=== PATIENT | female | born 1980 | race Caucasian/White ===

== ENCOUNTER 2023-03-21 00:16 | Emergency (ER) | payer BC ==
[~2023-03-21] VITALS: Ht 157.5 cm; Wt 99.8 kg
[2023-03-21 00:20] VITALS: BP_SYST 121; PULSE 85; RESP 19; TEMP 97.5; O2SAT 98
[2023-03-21 00:50] LABS: BILIRUBIN,URINE NEGATIVE (NEGATIVE); BLOOD, URINE NEGATIVE (NEGATIVE); CLARITY/URINE CLEAR (CLEAR); COLOR,URINE YELLOW (YELLOW); GLUCOSE,URINE NEGATIVE (NEGATIVE); KETONES,URINE NEGATIVE (NEGATIVE); LEUKOCYTE ESTERASE ,URINE NEGATIVE (NEGATIVE); NITRITE, URINE NEGATIVE (NEGATIVE); PROTEIN URINE NEGATIVE (NEGATIVE); UROBILINOGEN,URINE 0.2 (0.2-1.0)
[2023-03-21] MEDS ORDERED: KETOROLAC TROMETHAMINE 15 MG VIAL IM ONE (01:15)
[2023-03-21 01:21] LABS: BASOPHILS # (AUTO) 0.1 K/uL (0.0-0.2); BASOPHILS % (AUTO) 0.8 % (0.0-2.0); EOSINOPHILS # (AUTO) 0.4 K/uL (0.0-0.4); EOSINOPHILS % (AUTO) 3.1 % (0.0-4.0); HEMATOCRIT 34.7 % (36-48); HEMOGLOBIN 11.7 g/dL (12.0-16.0); LYMPHOCYTES # (AUTO) 3.1 K/uL (1.0-5.5); LYMPHOCYTES % (AUTO) 26.9 % (20.5-51.5); MEAN CORPUSCULAR HEMOGLOBIN 29 pg (27-31); MEAN CORPUSCULAR HGB CONC 34 % (32-36); MEAN CORPUSCULAR VOLUME 88 fL (79.0-98.0); MONOCYTES # (AUTO) 0.8 K/uL (0.0-1.0); MONOCYTES % (AUTO) 7.3 % (1.7-9.3); NEUTROPHILS # (AUTO) 7.2 K/uL (1.8-7.7); NEUTROPHILS % (AUTO) 61.9 % (40.0-70.0); PLATELET COUNT (AUTO) 267 K/uL (130-430); RED BLOOD CELL COUNT(AUTO) 3.97 MIL/uL (4.2-6.2); RED CELL DISTRIBUTION WIDTH 13.1 % (9.0-15.0); WHITE BLOOD COUNT (AUTO) 11.6 K/uL (4.8-10.8)
[2023-03-21 01:35] LABS: SERUM HCG (QUALITATIVE) NEGATIVE (NEGATIVE)
[2023-03-21] MEDS ORDERED: LIDOCAINE PATCH 5% 1 EA TP ONE (01:41)
[2023-03-21 01:43] LABS: ALANINE AMINOTRANSFERASE 31 U/L (12-78); ALBUMIN 3.4 g/dL (3.4-4.8); ANION GAP 7 (5-15); ASPARTATE AMINOTRANSFERASE 17 U/L (10-37); BILIRUBIN,DIRECT 0.1 mg/dL (0.0-0.3); CALCIUM 8.5 mg/dL (8.4-11.0); CARBON DIOXIDE 28 mmol/L (23-29); CHLORIDE 103 mmol/L (98-107); CREATININE 0.62 mg/dL (0.55-1.30); GFR AFRICAN AMERICAN 135 mL/min (>90); GFR NON AFRICAN-AMERICAN 112 mL/min (>90); GLUCOSE 105 mg/dL (74-106); LIPASE 34 U/L (16-77); POTASSIUM 4.2 mmol/L (3.5-5.1); SODIUM SERUM 138 mmol/L (136-145); TOTAL BILIRUBIN 0.3 mg/dL (0.0-1.0); UREA NITROGEN, BLOOD 14 mg/dL (8-21)
[2023-03-21] MEDS ORDERED: METH-634 PO (02:20)
[2023-03-21] MEDS ORDERED: LIDO1ADH77 TD (02:20)
[2023-03-21] MEDS ORDERED: IBUP-1969 PO (02:20)
[2023-03-21 02:49] VITALS: BP_SYST 118; PULSE 72; RESP 18; TEMP 97.5; O2SAT 100
== END 2023-03-21 02:49 | disposition home or self-care (01) ==
LOC: SED 00:16
DX: R10.9 Unspecified abdominal pain (principal); Z79.899 Other long term (current) drug therapy
CPT/HCPCS: 99284; 71045; 80076; 80048; 81001; 84703; 83690; 85025; 84484; 36415; 81003; J1885

== ENCOUNTER 2023-07-16 10:51 | Inpatient (IN) | payer OTHER, MEDICAID ==
[~2023-07-16] VITALS: Ht 160 cm; Wt 119.3 kg
[~2023-07-16 10:51] MED LIST: IBUP-1969 PO; LIDO1ADH77 TD; METH-634 PO
[2023-07-16 11:02] VITALS: BP_SYST 94; PULSE 95; RESP 18; TEMP 97.4; O2SAT 97
[2023-07-16 11:38] LABS: BILIRUBIN,URINE NEGATIVE (NEGATIVE); BLOOD, URINE NEGATIVE (NEGATIVE); COLOR,URINE YELLOW (YELLOW); GLUCOSE,URINE NEGATIVE (NEGATIVE); KETONES,URINE NEGATIVE (NEGATIVE); LEUKOCYTE ESTERASE ,URINE NEGATIVE (NEGATIVE); NITRITE, URINE NEGATIVE (NEGATIVE); PROTEIN URINE NEGATIVE (NEGATIVE); UROBILINOGEN,URINE 0.2 (0.2-1.0)
[2023-07-16 11:39] LABS: CLARITY/URINE SLIGHTLY HAZY (CLEAR)
[2023-07-16] MEDS: KETOROLAC TROMETHAMINE 30 MG VIAL IM ONE (11:42)
[2023-07-16 11:43] LABS: BASOPHILS # (AUTO) 0.1 K/uL (0.0-0.2); BASOPHILS % (AUTO) 0.5 % (0.0-2.0); EOSINOPHILS # (AUTO) 0.2 K/uL (0.0-0.4); HEMATOCRIT 37.9 % (36-48); HEMOGLOBIN 13.1 g/dL (12.0-16.0); LYMPHOCYTES # (AUTO) 2.2 K/uL (1.0-5.5); LYMPHOCYTES % (AUTO) 23.5 % (20.5-51.5); MEAN CORPUSCULAR HEMOGLOBIN 30 pg (27-31); MEAN CORPUSCULAR HGB CONC 35 % (32-36); MEAN CORPUSCULAR VOLUME 87 fL (79.0-98.0); MONOCYTES # (AUTO) 0.6 K/uL (0.0-1.0); MONOCYTES % (AUTO) 6.1 % (1.7-9.3); NEUTROPHILS # (AUTO) 6.5 K/uL (1.8-7.7); NEUTROPHILS % (AUTO) 67.9 % (40.0-70.0); PLATELET COUNT (AUTO) 284 K/uL (130-430); RED BLOOD CELL COUNT(AUTO) 4.33 MIL/uL (4.2-6.2); RED CELL DISTRIBUTION WIDTH 14.5 % (9.0-15.0); WHITE BLOOD COUNT (AUTO) 9.5 K/uL (4.8-10.8)
[2023-07-16 12:05] LABS: ALBUMIN 3.7 g/dL (3.4-4.8); BILIRUBIN,DIRECT 0.1 mg/dL (0.0-0.3); CALCIUM 9.4 mg/dL (8.4-11.0); CREATININE 0.96 mg/dL (0.55-1.30); POTASSIUM 3.7 mmol/L (3.5-5.1); TOTAL BILIRUBIN 0.4 mg/dL (0.0-1.0); TOTAL PROTEIN, SERUM 7.9 g/dL (6.4-8.3)
[2023-07-16] MEDS: fentaNYL CITRATE/PF 100 MCG/2 ML AMP IVP ONE ×2 (12:31→15:20)
[2023-07-16] MEDS ORDERED: PIPERACILLIN/TAZOBACTAM 3.375 GM/VIAL (ZOSYN) IV ONE ×2 (13:45)
[2023-07-16] MEDS: PIPERACILLIN/TAZO 3.375 GM in NS 50 ML IV ONE (14:03)
[2023-07-16] MEDS ORDERED: POTASSIUM CHLORIDE 20 MEQ TABLET.ER PO PRN (16:15)
[2023-07-16] MEDS ORDERED: MUPIROCIN 2% TOPICAL OINTMENT 22 GM NS PRN (16:15)
[2023-07-16] MEDS ORDERED: LORazepam 2 MG/ML VIAL IVP PRN (16:15)
[2023-07-16] MEDS ORDERED: MAGNESIUM SULFATE 50 ML IV PRN (16:15)
[2023-07-16] MEDS ORDERED: DOCUSATE SODIUM 100 MG CAPSULE PO PRN (16:15)
[2023-07-16] MEDS: D5NS 1,000 ML IV SCH (16:59)
[2023-07-16] MEDS ORDERED: fentaNYL CITRATE/PF 100 MCG/2 ML AMP ONE (17:50)
[2023-07-16] MEDS ORDERED: ceFAZolin SODIUM 1 GM VIAL ONE (17:50)
[2023-07-16] MEDS ORDERED: KETOROLAC TROMETHAMINE 30 MG VIAL IVP PRN (18:30)
[2023-07-16] MEDS: MORPHINE 4 MG INJ. 4 MG/ML VIAL IVP PRN (20:06)
[2023-07-16] MEDS: PIPERACILLIN/TAZO 3.375 GM in D5W 50 ML IV SCH (22:03)
[2023-07-16] MEDS ORDERED: RISP3TAB77 PO (23:21)
[2023-07-16] MEDS ORDERED: BUPR300T46 PO (23:21)
[2023-07-17] MEDS: ONDANSETRON HCL 4 MG/2 ML VIAL IVP PRN (00:04)
[2023-07-17 04:50] LABS: BASOPHILS % (AUTO) 0.6 % (0.0-2.0); EOSINOPHILS # (AUTO) 0.4 K/uL (0.0-0.4); EOSINOPHILS % (AUTO) 4.4 % (0.0-4.0); HEMOGLOBIN 11.9 g/dL (12.0-16.0); LYMPHOCYTES # (AUTO) 2.3 K/uL (1.0-5.5); LYMPHOCYTES % (AUTO) 28.6 % (20.5-51.5); MEAN CORPUSCULAR HEMOGLOBIN 30 pg (27-31); MEAN CORPUSCULAR HGB CONC 34 % (32-36); MEAN CORPUSCULAR VOLUME 88 fL (79.0-98.0); MONOCYTES # (AUTO) 0.6 K/uL (0.0-1.0); MONOCYTES % (AUTO) 7.3 % (1.7-9.3); NEUTROPHILS # (AUTO) 4.7 K/uL (1.8-7.7); NEUTROPHILS % (AUTO) 59.1 % (40.0-70.0); PLATELET COUNT (AUTO) 253 K/uL (130-430); RED BLOOD CELL COUNT(AUTO) 3.97 MIL/uL (4.2-6.2); RED CELL DISTRIBUTION WIDTH 14.3 % (9.0-15.0)
[2023-07-17 05:13] LABS: CALCIUM 7.5 mg/dL (8.4-11.0); CREATININE 0.89 mg/dL (0.55-1.30); POTASSIUM 3.8 mmol/L (3.5-5.1)
[2023-07-17] MEDS ORDERED: MORPHINE 4 MG INJ. 4 MG/ML VIAL ONE (05:57)
[2023-07-17] MEDS: ACETAMINOPHEN 500 MG TABLET PO PRN (08:10)
[2023-07-17] MEDS: ACETAMINOPHEN I.V. 1000 MG 100 ML IV ONE (09:05)
[2023-07-17] MEDS ORDERED: ACETAMINOPHEN I.V. 1000 MG 100 ML IV PRN (17:30)
[2023-07-17] MEDS ORDERED: HYDROcodone/ACETAMIN 5-325 MG TAB (NORCO/ VICODIN) PO PRN (18:15)
[2023-07-17] MEDS ORDERED: KETOROLAC TROMETHAMINE 15 MG VIAL IVP PRN (18:15)
[2023-07-17] MEDS ORDERED: NALOXONE HCL 0.4 MG/ML AMP (NARCAN) IVP PRN (18:15)
[2023-07-17] MEDS ORDERED: ONDANSETRON HCL 4 MG/2 ML VIAL IVP PRN ×2 (18:15→18:45)
[2023-07-17] MEDS ORDERED: HYDROmorphone 2 MG/ML VIAL IVP PRN (18:45)
[2023-07-17] MEDS ORDERED: LR 1,000 ML IV SCH (18:45)
[2023-07-17 18:55] VITALS: BP_SYST 132; PULSE 90; O2SAT 98
[2023-07-17] MEDS: HYDROmorphone 2 MG/ML VIAL ONE (19:15)
[2023-07-17] MEDS: HYDROmorphone 1 MG/ML INJ. CARTRIDGE ONE ×2 (19:25→19:44)
[2023-07-17] MEDS: HYDROmorphone 1 MG/ML INJ. CARTRIDGE IVP PRN (19:52)
[2023-07-18 01:47] VITALS: BP_SYST 126; PULSE 80; RESP 18; TEMP 98
[2023-07-18 02:07] VITALS: O2SAT 97
[2023-07-18] MEDS: NACL 0.9% 1,000 ML IV SCH (04:15)
[2023-07-18 06:27] LABS: BASOPHILS % (AUTO) 0.3 % (0.0-2.0); EOSINOPHILS # (AUTO) 0.1 K/uL (0.0-0.4); EOSINOPHILS % (AUTO) 0.5 % (0.0-4.0); HEMATOCRIT 38.2 % (36-48); HEMOGLOBIN 12.7 g/dL (12.0-16.0); LYMPHOCYTES # (AUTO) 0.9 K/uL (1.0-5.5); LYMPHOCYTES % (AUTO) 7.6 % (20.5-51.5); MEAN CORPUSCULAR HEMOGLOBIN 29 pg (27-31); MEAN CORPUSCULAR HGB CONC 33 % (32-36); MEAN CORPUSCULAR VOLUME 88 fL (79.0-98.0); MONOCYTES # (AUTO) 0.5 K/uL (0.0-1.0); NEUTROPHILS # (AUTO) 10.7 K/uL (1.8-7.7); NEUTROPHILS % (AUTO) 87.6 % (40.0-70.0); PLATELET COUNT (AUTO) 292 K/uL (130-430); RED BLOOD CELL COUNT(AUTO) 4.31 MIL/uL (4.2-6.2); RED CELL DISTRIBUTION WIDTH 14.2 % (9.0-15.0); WHITE BLOOD COUNT (AUTO) 12.2 K/uL (4.8-10.8)
[2023-07-18 06:33] LABS: ALBUMIN 3.2 g/dL (3.4-4.8); CALCIUM 8.6 mg/dL (8.4-11.0); CREATININE 0.9 mg/dL (0.55-1.30); POTASSIUM 3.7 mmol/L (3.5-5.1); TOTAL BILIRUBIN 0.5 mg/dL (0.0-1.0); TOTAL PROTEIN, SERUM 7.4 g/dL (6.4-8.3)
[2023-07-18 08:05] VITALS: BP_SYST 104; PULSE 79; RESP 15; TEMP 97.9; O2SAT 95
[2023-07-18] MEDS: KETOROLAC TROMETHAMINE 15 MG VIAL IVP PRN (08:22)
[2023-07-18] MEDS: HYDROmorphone 1 MG/ML INJ. CARTRIDGE IVP PRN (08:30)
[2023-07-18 12:00] VITALS: BP_SYST 103; PULSE 86; RESP 16; TEMP 98.3; O2SAT 95
[2023-07-18 15:39] VITALS: BP_SYST 112; PULSE 88; RESP 14; TEMP 98.8; O2SAT 95
[2023-07-18] MEDS: ACETAMINOPHEN 500 MG TABLET PO PRN (17:47)
[2023-07-18 20:00] VITALS: BP_SYST 110; PULSE 86; RESP 16; TEMP 97.6; O2SAT 95
[2023-07-18] MEDS: ZOLPIDEM TARTRATE 5 MG TABLET PO PRN (23:34)
[2023-07-19] VITALS: BP_SYST 113; PULSE 84; RESP 16; TEMP 97.8; O2SAT 96
[2023-07-19 06:59] LABS: BASOPHILS % (AUTO) 0.1 % (0.0-2.0); EOSINOPHILS # (AUTO) 0.7 K/uL (0.0-0.4); EOSINOPHILS % (AUTO) 7.7 % (0.0-4.0); HEMATOCRIT 34.4 % (36-48); HEMOGLOBIN 11.8 g/dL (12.0-16.0); LYMPHOCYTES # (AUTO) 1.7 K/uL (1.0-5.5); LYMPHOCYTES % (AUTO) 18.8 % (20.5-51.5); MEAN CORPUSCULAR HEMOGLOBIN 30 pg (27-31); MEAN CORPUSCULAR HGB CONC 34 % (32-36); MEAN CORPUSCULAR VOLUME 88 fL (79.0-98.0); MONOCYTES # (AUTO) 0.9 K/uL (0.0-1.0); MONOCYTES % (AUTO) 9.4 % (1.7-9.3); NEUTROPHILS # (AUTO) 5.8 K/uL (1.8-7.7); PLATELET COUNT (AUTO) 255 K/uL (130-430); RED BLOOD CELL COUNT(AUTO) 3.93 MIL/uL (4.2-6.2); RED CELL DISTRIBUTION WIDTH 14.1 % (9.0-15.0); WHITE BLOOD COUNT (AUTO) 9.1 K/uL (4.8-10.8)
[2023-07-19 07:04] LABS: CALCIUM 8.6 mg/dL (8.4-11.0); CREATININE 0.73 mg/dL (0.55-1.30); POTASSIUM 3.6 mmol/L (3.5-5.1)
[2023-07-19 08:44] VITALS: BP_SYST 154; PULSE 78; RESP 16; TEMP 97.8; O2SAT 96
[2023-07-19] MEDS ORDERED: AMOX-423 PO (11:04)
[2023-07-19] MEDS ORDERED: ACET-73 PO (11:07)
[2023-07-19] MEDS ORDERED: CYCL10TA24 PO (11:07)
[2023-07-19 11:42] VITALS: BP_SYST 122; PULSE 88; RESP 16; TEMP 97.8; O2SAT 95
[2023-07-19] MEDS: HYDROcodone/ACETAMIN 10-325 MG TAB PO PRN (12:03)
[2023-07-19] MEDS: CYCLOBENZAPRINE HCL 10 MG TABLET (FLEXERIL) PO ONE (12:03)
[2023-07-19 13:33] VITALS: BP_SYST 122; PULSE 77; RESP 16; TEMP 97.8; O2SAT 95
== END 2023-07-19 14:20 | disposition home or self-care (01) | DRG 398 ==
LOC: SED 10:51 → SMU 16:06
PROVIDERS: ADMIT General Practice; ATTEND General Practice
PROC: 3E1M48Z Irrigation of Peritoneal Cavity using Irrigating Substance, Percutaneous Endoscopic Approach (ICD-10-PCS; 2023-07-17)
PROC: 0DTJ4ZZ Resection of Appendix, Percutaneous Endoscopic Approach (ICD-10-PCS; principal; 2023-07-17 17:50)
DX: K35.80 Unspecified acute appendicitis (principal); Z68.42 Body mass index [BMI] 45.0-49.9, adult; E83.51 Hypocalcemia; E66.9 Obesity, unspecified; Z90.711 Acquired absence of uterus with remaining cervical stump; Z88.8 Allergy status to other drugs, medicaments and biological substances; Z79.899 Other long term (current) drug therapy
CPT/HCPCS: 36415; 80048; 80053; 80076; 81001; 81003; 83037; 83605; 83690; 83735; 85025; 87040; 87070; 87075; 88304; 94010; 94070; 94760; 99285; C1727; J0131; J0330; J0690; J1170; J1885; J2001; J2270; J2405; J2543; J2704; J2765; J3010; J3465; J3490; J7030; J7060; J7120

== ENCOUNTER 2023-07-25 12:01 | Inpatient (IN) | payer OTHER, MEDICAID ==
[~2023-07-25] VITALS: Ht 157.5 cm; Wt 113.4 kg
[~2023-07-25 12:01] MED LIST changes: +ACET-73 PO; +AMOX-423 PO; +BUPR300T46 PO; +CYCL10TA24 PO; +RISP3TAB77 PO
[2023-07-25 12:15] VITALS: BP_SYST 118; PULSE 93; RESP 18; TEMP 97.3; O2SAT 95
[2023-07-25 12:49] LABS: BASOPHILS % (AUTO) 0.1 % (0.0-2.0); EOSINOPHILS # (AUTO) 0.3 K/uL (0.0-0.4); EOSINOPHILS % (AUTO) 1.2 % (0.0-4.0); HEMATOCRIT 37.3 % (36-48); HEMOGLOBIN 12.7 g/dL (12.0-16.0); LYMPHOCYTES # (AUTO) 1.5 K/uL (1.0-5.5); LYMPHOCYTES % (AUTO) 6.4 % (20.5-51.5); MEAN CORPUSCULAR HEMOGLOBIN 30 pg (27-31); MEAN CORPUSCULAR HGB CONC 34 % (32-36); MEAN CORPUSCULAR VOLUME 88 fL (79.0-98.0); MONOCYTES # (AUTO) 1.7 K/uL (0.0-1.0); MONOCYTES % (AUTO) 7.3 % (1.7-9.3); NEUTROPHILS # (AUTO) 19.4 K/uL (1.8-7.7); PLATELET COUNT (AUTO) 335 K/uL (130-430); RED BLOOD CELL COUNT(AUTO) 4.24 MIL/uL (4.2-6.2)
[2023-07-25 12:54] LABS: WHITE BLOOD COUNT (AUTO) 22.8 K/uL (4.8-10.8)
[2023-07-25 12:58] LABS: CALCIUM 8.9 mg/dL (8.4-11.0); CREATININE 0.93 mg/dL (0.55-1.30); POTASSIUM 4.1 mmol/L (3.5-5.1)
[2023-07-25] MEDS: KETOROLAC TROMETHAMINE 30 MG VIAL IM ONE (13:02)
[2023-07-25] MEDS: MORPHINE 2 MG/ML INJ. SYRINGE IM ONE (13:14)
[2023-07-25 13:39] LABS: BILIRUBIN,URINE NEGATIVE (NEGATIVE); BLOOD, URINE NEGATIVE (NEGATIVE); CLARITY/URINE CLEAR (CLEAR); COLOR,URINE YELLOW (YELLOW); GLUCOSE,URINE NEGATIVE (NEGATIVE); KETONES,URINE NEGATIVE (NEGATIVE); LEUKOCYTE ESTERASE ,URINE NEGATIVE (NEGATIVE); NITRITE, URINE NEGATIVE (NEGATIVE); PH,URINE 6.5 (5.0-8.0); PROTEIN URINE NEGATIVE (NEGATIVE); UROBILINOGEN,URINE 0.2 (0.2-1.0)
[2023-07-25] MEDS ORDERED: PIPERACILLIN/TAZOBACTAM 4.5 GM/VIAL (ZOSYN) IV ONE (14:10)
[2023-07-25] MEDS: PIPERACILLIN/TAZO 4.5 GM in NS 100 ML IV ONE (14:19)
[2023-07-25] MEDS ORDERED: NALOXONE HCL 0.4 MG/ML AMP (NARCAN) IVP PRN ×2 (15:00)
[2023-07-25] MEDS ORDERED: ACETAMINOPHEN 325 MG TABLET PO PRN ×3 (15:00→16:00)
[2023-07-25] MEDS: HYDROcodone/ACETAMIN 10-325 MG TAB PO PRN (15:04)
[2023-07-25] MEDS: metroNIDAZOLE 500 mg/NS 100 ML IV ONE (15:08)
[2023-07-25] MEDS: D5/0.45 NS 1,000 ML IV SCH (15:19)
[2023-07-25] MEDS ORDERED: LORazepam 2 MG/ML VIAL IVP PRN (15:45)
[2023-07-25] MEDS ORDERED: NON-FORMULARY MEDICATION (Lidocaine 1 PATCH) TD PRN (15:45)
[2023-07-25] MEDS ORDERED: ONDANSETRON HCL 4 MG/2 ML VIAL IVP PRN (15:45)
[2023-07-25] MEDS: CYCLOBENZAPRINE HCL 10 MG TABLET (FLEXERIL) PO SCH (22:31)
[2023-07-25] MEDS: risperiDONE 1 MG TABLET (RisperDAL) PO SCH (22:32)
[2023-07-25] MEDS: metroNIDAZOLE 500 mg/NS 100 ML IV SCH (22:33)
[2023-07-25] MEDS: CIPROFLOXACIN LACT 400 MG/D5W 200 ML IV SCH (22:34)
[2023-07-25 22:50] VITALS: BP_SYST 125; PULSE 79; RESP 20; TEMP 98.5
[2023-07-26] VITALS (7 sets, daily range): BP systolic 107–129; PULSE 75–89; RESP 18–20; TEMP 97.4–98.3; O2SAT 94–99
[2023-07-26 07:24] LABS: CALCIUM 8.5 mg/dL (8.4-11.0); CREATININE 0.77 mg/dL (0.55-1.30); POTASSIUM 4.1 mmol/L (3.5-5.1)
[2023-07-26 07:31] LABS: BASOPHILS # (AUTO) 0.1 K/uL (0.0-0.2); BASOPHILS % (AUTO) 0.4 % (0.0-2.0); EOSINOPHILS # (AUTO) 0.7 K/uL (0.0-0.4); EOSINOPHILS % (AUTO) 3.7 % (0.0-4.0); HEMATOCRIT 35.1 % (36-48); HEMOGLOBIN 11.9 g/dL (12.0-16.0); LYMPHOCYTES # (AUTO) 1.9 K/uL (1.0-5.5); LYMPHOCYTES % (AUTO) 10.8 % (20.5-51.5); MEAN CORPUSCULAR HEMOGLOBIN 30 pg (27-31); MEAN CORPUSCULAR HGB CONC 34 % (32-36); MEAN CORPUSCULAR VOLUME 89 fL (79.0-98.0); MONOCYTES % (AUTO) 5.6 % (1.7-9.3); NEUTROPHILS # (AUTO) 14.2 K/uL (1.8-7.7); NEUTROPHILS % (AUTO) 79.5 % (40.0-70.0); PLATELET COUNT (AUTO) 318 K/uL (130-430); RED BLOOD CELL COUNT(AUTO) 3.96 MIL/uL (4.2-6.2); RED CELL DISTRIBUTION WIDTH 14.2 % (9.0-15.0); WHITE BLOOD COUNT (AUTO) 17.9 K/uL (4.8-10.8)
[2023-07-26] MEDS: buPROPion HCL 150 MG TABLET.SA PO SCH (08:42)
[2023-07-26] MEDS ORDERED: NALOXONE HCL 0.4 MG/ML AMP (NARCAN) IVP PRN (08:45)
[2023-07-26] MEDS: MILK OF MAGNESIA 30 ML UDC PO ONE (08:46)
[2023-07-26] MEDS: MORPHINE 2 MG/ML INJ. SYRINGE IVP PRN (09:55)
[2023-07-26] MEDS: NORMAL SALINE 5 ML DISP.SYRIN IVF SCH (14:10)
[2023-07-26] MEDS: VANCOMYCIN HCL ORAL SOLUTION 125 MG/5 ML, 150 ML PO SCH (14:42)
[2023-07-26] MEDS: LACTOBACILLUS RHAMNOSUS GG 1 CAP CAPSULE PO SCH (20:16)
[2023-07-27] VITALS: BP_SYST 106; PULSE 82; RESP 18; TEMP 97.8; O2SAT 96
[2023-07-27 05:52] LABS: BASOPHILS # (AUTO) 0.1 K/uL (0.0-0.2); BASOPHILS % (AUTO) 0.6 % (0.0-2.0); EOSINOPHILS # (AUTO) 0.9 K/uL (0.0-0.4); HEMATOCRIT 32.6 % (36-48); LYMPHOCYTES # (AUTO) 2.4 K/uL (1.0-5.5); LYMPHOCYTES % (AUTO) 18.3 % (20.5-51.5); MEAN CORPUSCULAR HEMOGLOBIN 30 pg (27-31); MEAN CORPUSCULAR HGB CONC 34 % (32-36); MEAN CORPUSCULAR VOLUME 88 fL (79.0-98.0); MONOCYTES % (AUTO) 7.7 % (1.7-9.3); NEUTROPHILS # (AUTO) 8.6 K/uL (1.8-7.7); NEUTROPHILS % (AUTO) 66.4 % (40.0-70.0); PLATELET COUNT (AUTO) 310 K/uL (130-430); RED BLOOD CELL COUNT(AUTO) 3.72 MIL/uL (4.2-6.2); RED CELL DISTRIBUTION WIDTH 14.3 % (9.0-15.0); WHITE BLOOD COUNT (AUTO) 12.9 K/uL (4.8-10.8)
[2023-07-27 06:05] LABS: ERYTHROCYTE SEDIMENTATION RATE 64 MM/HR (0-20)
[2023-07-27 06:20] LABS: ALANINE AMINOTRANSFERASE 28 U/L (12-78); ALBUMIN 2.7 g/dL (3.4-4.8); ANION GAP 7 (5-15); ASPARTATE AMINOTRANSFERASE < 5 U/L (10-37); CALCIUM 8.7 mg/dL (8.4-11.0); CARBON DIOXIDE 29 mmol/L (23-29); CHLORIDE 103 mmol/L (98-107); CREATININE 0.81 mg/dL (0.55-1.30); GFR AFRICAN AMERICAN 99 mL/min (>90); GLUCOSE 98 mg/dL (74-106); POTASSIUM 4.5 mmol/L (3.5-5.1); SODIUM SERUM 139 mmol/L (136-145); TOTAL BILIRUBIN 0.3 mg/dL (0.0-1.0); TOTAL PROTEIN, SERUM 6.9 g/dL (6.4-8.3); UREA NITROGEN, BLOOD 10 mg/dL (8-21)
[2023-07-27 08:00] VITALS: BP_SYST 110; PULSE 90; RESP 18; TEMP 97.9; O2SAT 100; O2SAT 99
[2023-07-27 08:12] LABS: GFR NON AFRICAN-AMERICAN 82 mL/min (>90)
[2023-07-27] MEDS: SIMETHICONE 80 MG TAB.CHEW PO SCH (10:13)
[2023-07-27 12:00] VITALS: BP_SYST 118; PULSE 86; RESP 20; TEMP 98.2; O2SAT 98
[2023-07-27] MEDS: HYDROcodone/ACETAMIN 5-325 MG TAB (NORCO/ VICODIN) PO PRN (14:42)
[2023-07-27 16:00] VITALS: BP_SYST 124; PULSE 88; RESP 18; TEMP 98.8; O2SAT 96
[2023-07-27 20:00] VITALS: BP_SYST 118; PULSE 87; RESP 18; TEMP 97; O2SAT 93
[2023-07-27 23:45] VITALS: O2SAT 93
[2023-07-28] VITALS: BP_SYST 101; PULSE 79; RESP 16; TEMP 97.1; O2SAT 96
[2023-07-28 05:06] LABS: BASOPHILS # (AUTO) 0.1 K/uL (0.0-0.2); BASOPHILS % (AUTO) 1.1 % (0.0-2.0); EOSINOPHILS # (AUTO) 0.9 K/uL (0.0-0.4); HEMATOCRIT 34.4 % (36-48); HEMOGLOBIN 11.6 g/dL (12.0-16.0); LYMPHOCYTES # (AUTO) 2.1 K/uL (1.0-5.5); LYMPHOCYTES % (AUTO) 18.4 % (20.5-51.5); MEAN CORPUSCULAR HEMOGLOBIN 30 pg (27-31); MEAN CORPUSCULAR HGB CONC 34 % (32-36); MEAN CORPUSCULAR VOLUME 88 fL (79.0-98.0); MONOCYTES # (AUTO) 0.9 K/uL (0.0-1.0); MONOCYTES % (AUTO) 8.3 % (1.7-9.3); NEUTROPHILS # (AUTO) 7.4 K/uL (1.8-7.7); NEUTROPHILS % (AUTO) 64.2 % (40.0-70.0); PLATELET COUNT (AUTO) 354 K/uL (130-430); RED BLOOD CELL COUNT(AUTO) 3.92 MIL/uL (4.2-6.2); WHITE BLOOD COUNT (AUTO) 11.5 K/uL (4.8-10.8)
[2023-07-28 05:11] LABS: ERYTHROCYTE SEDIMENTATION RATE 72 MM/HR (0-20)
[2023-07-28 05:27] LABS: CALCIUM 9.3 mg/dL (8.4-11.0); CREATININE 0.82 mg/dL (0.55-1.30); POTASSIUM 4.8 mmol/L (3.5-5.1)
[2023-07-28 08:36] VITALS: BP_SYST 104; PULSE 76; RESP 18; TEMP 97.6; O2SAT 95
[2023-07-28] MEDS ORDERED: METR-154 PO (09:13)
[2023-07-28] MEDS ORDERED: CIPR500T5 PO (09:13)
[2023-07-28] MEDS ORDERED: HYDR-3917 PO (09:13)
[2023-07-28] MEDS ORDERED: SIME80TA15 PO (09:13)
[2023-07-28] MEDS ORDERED: LACT1CAP57 PO (09:13)
[2023-07-28 12:01] VITALS: BP_SYST 104; PULSE 77; RESP 17; TEMP 98.1; O2SAT 99
[2023-07-28 12:22] VITALS: BP_SYST 114; PULSE 82; RESP 18; TEMP 97.8; O2SAT 97
[2023-08-16] MEDS ORDERED: METH-776 PO (23:17)
[2023-08-16] MEDS ORDERED: METH-634 PO (23:17)
== END 2023-07-28 12:35 | disposition home health service (06) | DRG 871 ==
LOC: SED 12:01 → SMU 14:02 → OBSVTOIN 14:02 → SMU 20:15
PROVIDERS: ADMIT Preventive Medicine Preventive Medicine/Occupational Environmental Medicine; ATTEND Preventive Medicine Preventive Medicine/Occupational Environmental Medicine
DX: A41.9 Sepsis, unspecified organism (principal); G93.41 Metabolic encephalopathy; Z68.42 Body mass index [BMI] 45.0-49.9, adult; A09 Infectious gastroenteritis and colitis, unspecified; E44.0 Moderate protein-calorie malnutrition; K76.0 Fatty (change of) liver, not elsewhere classified; D64.9 Anemia, unspecified; E88.09 Other disorders of plasma-protein metabolism, not elsewhere classified; E66.9 Obesity, unspecified; Z90.49 Acquired absence of other specified parts of digestive tract; Z90.710 Acquired absence of both cervix and uterus; Z79.899 Other long term (current) drug therapy
CPT/HCPCS: 36415; 80048; 80053; 81001; 81003; 83605; 85025; 85651; 87040; 87045-TC; 87046; 87081; 89055; 96365; 96368; 96372; 99285; J0744; J1885; J2270; J2543; J3490

== ENCOUNTER 2023-08-07 09:53 | Emergency (ER) | payer OTHER, MEDICAID ==
[~2023-08-07] VITALS: Ht 157.5 cm; Wt 113.4 kg
[~2023-08-07 09:53] MED LIST changes: -AMOX-423 PO; +CIPR500T5 PO; +HYDR-3917 PO; +LACT1CAP57 PO; +METR-154 PO; +SIME80TA15 PO
[2023-08-07] MEDS ORDERED: KETOROLAC TROMETHAMINE 60 MG/2 ML VIAL IM ONE (10:00)
[2023-08-07] MEDS ORDERED: HYDROcodone/ACETAMIN 10-325 MG TAB PO ONE (10:00)
[2023-08-07 10:01] VITALS: BP_SYST 123; PULSE 86; RESP 18; TEMP 98.3; O2SAT 98
[2023-08-07] MEDS ORDERED: NORMAL SALINE 5 ML DISP.SYRIN IVF SCH (10:15)
[2023-08-07 10:26] LABS: BASOPHILS # (AUTO) 0.1 K/uL (0.0-0.2); BASOPHILS % (AUTO) 0.7 % (0.0-2.0); EOSINOPHILS # (AUTO) 0.7 K/uL (0.0-0.4); EOSINOPHILS % (AUTO) 7.9 % (0.0-4.0); HEMOGLOBIN 12.2 g/dL (12.0-16.0); LYMPHOCYTES # (AUTO) 2.8 K/uL (1.0-5.5); LYMPHOCYTES % (AUTO) 29.7 % (20.5-51.5); MEAN CORPUSCULAR HEMOGLOBIN 30 pg (27-31); MEAN CORPUSCULAR HGB CONC 34 % (32-36); MEAN CORPUSCULAR VOLUME 88 fL (79.0-98.0); MONOCYTES # (AUTO) 0.5 K/uL (0.0-1.0); MONOCYTES % (AUTO) 5.6 % (1.7-9.3); NEUTROPHILS # (AUTO) 5.3 K/uL (1.8-7.7); NEUTROPHILS % (AUTO) 56.1 % (40.0-70.0); PLATELET COUNT (AUTO) 317 K/uL (130-430); RED BLOOD CELL COUNT(AUTO) 4.09 MIL/uL (4.2-6.2); RED CELL DISTRIBUTION WIDTH 14.1 % (9.0-15.0); WHITE BLOOD COUNT (AUTO) 9.5 K/uL (4.8-10.8)
[2023-08-07 10:42] LABS: INR 1.1 (0.8-1.2); PROTHROMBIN TIME 10.9 SECS (9.5-12.5)
[2023-08-07 10:44] LABS: ALBUMIN 2.9 g/dL (3.4-4.8); CALCIUM 8.5 mg/dL (8.4-11.0); CREATININE 0.76 mg/dL (0.55-1.30); POTASSIUM 3.6 mmol/L (3.5-5.1); TOTAL BILIRUBIN 0.2 mg/dL (0.0-1.0); TOTAL PROTEIN, SERUM 7.3 g/dL (6.4-8.3)
[2023-08-07 10:45] LABS: SERUM HCG (QUALITATIVE) NEGATIVE (NEGATIVE)
[2023-08-07 10:59] LABS: BILIRUBIN,URINE NEGATIVE (NEGATIVE); BLOOD, URINE NEGATIVE (NEGATIVE); COLOR,URINE YELLOW (YELLOW); GLUCOSE,URINE NEGATIVE (NEGATIVE); KETONES,URINE NEGATIVE (NEGATIVE); LEUKOCYTE ESTERASE ,URINE NEGATIVE (NEGATIVE); NITRITE, URINE NEGATIVE (NEGATIVE); PH,URINE 5.5 (5.0-8.0); PROTEIN URINE NEGATIVE (NEGATIVE); UROBILINOGEN,URINE 0.2 (0.2-1.0)
[2023-08-07 11:00] LABS: CLARITY/URINE HAZY (CLEAR)
[2023-08-07 11:09] LABS: BACTERIA,URINE MODERATE /HPF (None Seen); RBC,URINE 0-3 /HPF (0-3); WBC,URINE 0-3 /HPF (0-3)
[2023-08-07 11:21] LABS: BILIRUBIN,DIRECT 0.1 mg/dL (0.0-0.3)
[2023-08-07] MEDS ORDERED: IBUP-1969 PO (11:44)
[2023-08-07] MEDS ORDERED: SOM350 PO (11:44)
[2023-08-07 12:02] VITALS: BP_SYST 130; PULSE 86; RESP 18; TEMP 98.3; O2SAT 98
[2023-08-07] MEDS: MORPHINE 4 MG INJ. 4 MG/ML VIAL IM ONE (12:03)
== END 2023-08-07 12:02 | disposition home or self-care (01) ==
LOC: SED 09:53
DX: M54.50 Low back pain, unspecified (principal); Z88.5 Allergy status to narcotic agent; Z79.899 Other long term (current) drug therapy; Z79.2 Long term (current) use of antibiotics
CPT/HCPCS: 99284; 80076; 80048; 81001; 82150; 84703; 83690; 85025; 85610; 85730; 36415; 72100; 81025; 96372; 82397; J2270; 81000; 81015

== ENCOUNTER 2023-08-13 14:04 | Emergency (ER) | payer OTHER, MEDICAID ==
[~2023-08-13] VITALS: Ht 160 cm; Wt 113.4 kg
[~2023-08-13 14:04] MED LIST changes: +SOM350 PO
[2023-08-13 14:05] VITALS: BP_SYST 102; PULSE 80; RESP 18; TEMP 97.9; O2SAT 96
[2023-08-13] MEDS ORDERED: ACET-2634 PO (15:32)
[2023-08-16] MEDS ORDERED: METH-776 PO (23:17)
[2023-08-16] MEDS ORDERED: METH-634 PO (23:17)
== END 2023-08-13 15:40 | disposition home or self-care (01) ==
LOC: SED 14:04
DX: S80.11XA Contusion of right lower leg, initial encounter (principal); Z88.5 Allergy status to narcotic agent; Z79.899 Other long term (current) drug therapy; Z79.2 Long term (current) use of antibiotics; W18.39XA Other fall on same level, initial encounter; Y93.89 Activity, other specified; Y92.89 Other specified places as the place of occurrence of the external cause; Y99.8 Other external cause status
CPT/HCPCS: 73590; 99283

== ENCOUNTER 2023-08-26 16:06 | Emergency (ER) | payer MEDICAID, OTHER ==
[~2023-08-26] VITALS: Ht 157.5 cm; Wt 113.4 kg
[~2023-08-26 16:06] MED LIST changes: +ACET-2634 PO; +METH-776 PO
[2023-08-26 16:19] VITALS: BP_SYST 112; PULSE 84; RESP 18; TEMP 98; O2SAT 94
[2023-08-26 17:13] LABS: BILIRUBIN,URINE NEGATIVE (NEGATIVE); BLOOD, URINE NEGATIVE (NEGATIVE); CLARITY/URINE SL CLOUDY (CLEAR); COLOR,URINE YELLOW (YELLOW); GLUCOSE,URINE NEGATIVE (NEGATIVE); KETONES,URINE NEGATIVE (NEGATIVE); LEUKOCYTE ESTERASE ,URINE 1+ (NEGATIVE); NITRITE, URINE NEGATIVE (NEGATIVE); PH,URINE 5.5 (5.0-8.0); PROTEIN URINE NEGATIVE (NEGATIVE); UROBILINOGEN,URINE 0.2 (0.2-1.0)
[2023-08-26 17:40] LABS: BACTERIA,URINE RARE /HPF (None Seen); RBC,URINE 0-3 /HPF (0-3)
[2023-08-26] MEDS ORDERED: GYNECR VG (18:48)
[2023-08-26 19:10] VITALS: BP_SYST 112; PULSE 84; RESP 18; TEMP 98; O2SAT 94
== END 2023-08-26 19:10 | disposition home or self-care (01) ==
LOC: SED 16:06
DX: N76.0 Acute vaginitis (principal); Z88.5 Allergy status to narcotic agent; Z79.899 Other long term (current) drug therapy; Z79.2 Long term (current) use of antibiotics
CPT/HCPCS: 36415; 81000; 81001; 81015; 81025; 87086; 87491; 99283

== ENCOUNTER 2023-09-13 09:02 | Emergency (ER) | payer OTHER ==
[~2023-09-13] VITALS: Ht 160 cm; Wt 113.4 kg
[~2023-09-13 09:02] MED LIST changes: +BUPR-551 PO; -BUPR300T46 PO; +GYNECR VG
[2023-09-13 09:07] VITALS: BP_SYST 98; PULSE 70; RESP 16; TEMP 97.7; O2SAT 98
[2023-09-13 09:22] VITALS: BP_SYST 112; PULSE 82; RESP 17; TEMP 97.6; O2SAT 98
[2023-09-13] MEDS ORDERED: METH-634 PO (10:52)
[2023-09-13 11:04] VITALS: BP_SYST 112; PULSE 82; RESP 17; TEMP 97.6; O2SAT 98
== END 2023-09-13 11:08 | disposition home or self-care (01) ==
LOC: SED 09:02
DX: M25.561 Pain in right knee (principal); Z88.5 Allergy status to narcotic agent; Z79.899 Other long term (current) drug therapy; Z79.2 Long term (current) use of antibiotics
CPT/HCPCS: 73564; 93971; 99284

== ENCOUNTER 2023-11-12 08:39 | Emergency (ER) | payer OTHER ==
[~2023-11-12] VITALS: Ht 160 cm; Wt 111.1 kg
[2023-11-12 08:54] VITALS: BP_SYST 125; PULSE 65; RESP 18; TEMP 98.3; O2SAT 98
[2023-11-12] MEDS: ONDANSETRON HCL 4 MG/2 ML VIAL IVP ONE ×2 (09:41→10:55)
[2023-11-12] MEDS: NACL 0.9% 1,000 ML IV ONE (09:41)
[2023-11-12] MEDS: MORPHINE 4 MG INJ. 4 MG/ML VIAL IVP ONE ×2 (09:42→13:10)
[2023-11-12 09:59] LABS: BASOPHILS # (AUTO) 0.1 K/uL (0.0-0.2); BASOPHILS % (AUTO) 0.7 % (0.0-2.0); EOSINOPHILS % (AUTO) 0.2 % (0.0-4.0); HEMATOCRIT 43.5 % (36-48); HEMOGLOBIN 14.4 g/dL (12.0-16.0); LYMPHOCYTES # (AUTO) 1.4 K/uL (1.0-5.5); LYMPHOCYTES % (AUTO) 9.6 % (20.5-51.5); MEAN CORPUSCULAR HEMOGLOBIN 30 pg (27-31); MEAN CORPUSCULAR HGB CONC 33 % (32-36); MEAN CORPUSCULAR VOLUME 90 fL (79.0-98.0); MONOCYTES # (AUTO) 0.4 K/uL (0.0-1.0); MONOCYTES % (AUTO) 2.5 % (1.7-9.3); NEUTROPHILS # (AUTO) 12.3 K/uL (1.8-7.7); PLATELET COUNT (AUTO) 300 K/uL (130-430); RED BLOOD CELL COUNT(AUTO) 4.86 MIL/uL (4.2-6.2); RED CELL DISTRIBUTION WIDTH 13.7 % (9.0-15.0); WHITE BLOOD COUNT (AUTO) 14.2 K/uL (4.8-10.8)
[2023-11-12 10:18] LABS: INR 1.1 (0.8-1.2); PROTHROMBIN TIME 11.3 SECS (9.5-12.5)
[2023-11-12 10:48] LABS: ALBUMIN 3.8 g/dL (3.4-4.8)
[2023-11-12 11:06] LABS: BILIRUBIN,DIRECT 0.2 mg/dL (0.0-0.3); CALCIUM 9.4 mg/dL (8.4-11.0); CREATININE 0.81 mg/dL (0.55-1.30); POTASSIUM 4.1 mmol/L (3.5-5.1); TOTAL BILIRUBIN 0.7 mg/dL (0.0-1.0)
[2023-11-12] MEDS ORDERED: ONDA-8 TL (12:53)
[2023-11-12] MEDS: METOCLOPRAMIDE HCL 10 MG/2 ML VIAL IVP ONE (13:14)
[2023-11-12 13:27] VITALS: BP_SYST 142; PULSE 76; RESP 17; TEMP 97.7; O2SAT 98
[2023-11-12 13:27] LABS: BILIRUBIN,URINE NEGATIVE (NEGATIVE); BLOOD, URINE NEGATIVE (NEGATIVE); CLARITY/URINE CLEAR (CLEAR); COLOR,URINE YELLOW (YELLOW); GLUCOSE,URINE NEGATIVE (NEGATIVE); KETONES,URINE 2+ (NEGATIVE); LEUKOCYTE ESTERASE ,URINE NEGATIVE (NEGATIVE); NITRITE, URINE NEGATIVE (NEGATIVE); PH,URINE 8.5 (5.0-8.0); PROTEIN URINE NEGATIVE (NEGATIVE); UROBILINOGEN,URINE 0.2 (0.2-1.0)
== END 2023-11-12 13:27 | disposition home or self-care (01) ==
LOC: SED 08:39
DX: K29.70 Gastritis, unspecified, without bleeding (principal); R10.11 Right upper quadrant pain; R10.13 Epigastric pain; R11.2 Nausea with vomiting, unspecified; Z90.49 Acquired absence of other specified parts of digestive tract; Z88.5 Allergy status to narcotic agent; Z79.899 Other long term (current) drug therapy; Z79.2 Long term (current) use of antibiotics
CPT/HCPCS: 99285; 74176; 96374; 76705; 96375; 96361; 80076; 80048; 81001; 83690; 85025; 85610; 85730; 36415; 96376; 81003; J2765; J2405; J2270; J7030

== ENCOUNTER 2023-11-17 11:45 | Emergency (ER) | payer OTHER ==
[~2023-11-17] VITALS: Ht 157.5 cm; Wt 111.1 kg
[~2023-11-17 11:45] MED LIST changes: +ONDA-8 TL
[2023-11-17 12:06] VITALS: BP_SYST 142; PULSE 83; TEMP 97.3; O2SAT 97
[2023-11-17 13:28] LABS: BASOPHILS # (AUTO) 0.1 K/uL (0.0-0.2); BASOPHILS % (AUTO) 0.4 % (0.0-2.0); EOSINOPHILS # (AUTO) 0.2 K/uL (0.0-0.4); EOSINOPHILS % (AUTO) 1.1 % (0.0-4.0); HEMOGLOBIN 13.6 g/dL (12.0-16.0); LYMPHOCYTES # (AUTO) 1.5 K/uL (1.0-5.5); LYMPHOCYTES % (AUTO) 10.3 % (20.5-51.5); MEAN CORPUSCULAR HEMOGLOBIN 30 pg (27-31); MEAN CORPUSCULAR HGB CONC 33 % (32-36); MEAN CORPUSCULAR VOLUME 90 fL (79.0-98.0); MONOCYTES # (AUTO) 0.7 K/uL (0.0-1.0); MONOCYTES % (AUTO) 5.1 % (1.7-9.3); NEUTROPHILS % (AUTO) 83.1 % (40.0-70.0); PLATELET COUNT (AUTO) 317 K/uL (130-430); RED BLOOD CELL COUNT(AUTO) 4.56 MIL/uL (4.2-6.2); RED CELL DISTRIBUTION WIDTH 13.7 % (9.0-15.0); WHITE BLOOD COUNT (AUTO) 14.4 K/uL (4.8-10.8)
[2023-11-17 13:55] LABS: INR 1.1 (0.8-1.2); PROTHROMBIN TIME 11.9 SECS (9.5-12.5)
[2023-11-17 13:57] LABS: SERUM HCG (QUALITATIVE) NEGATIVE (NEGATIVE)
[2023-11-17 14:00] LABS: CALCIUM 9.3 mg/dL (8.4-11.0); CREATININE 0.76 mg/dL (0.55-1.30); TOTAL BILIRUBIN 0.6 mg/dL (0.0-1.0)
[2023-11-17 14:22] LABS: BILIRUBIN,DIRECT 0.2 mg/dL (0.0-0.3)
[2023-11-17] MEDS: METOCLOPRAMIDE HCL 10 MG/2 ML VIAL IVP ONE ×2 (14:57→15:28)
[2023-11-17] MEDS: MORPHINE 4 MG INJ. 4 MG/ML VIAL IVP ONE (14:58)
[2023-11-17 15:33] VITALS: BP_SYST 142; PULSE 83; TEMP 97.3; O2SAT 97
[2023-11-17] MEDS ORDERED: METO-290 PO (15:33)
== END 2023-11-17 15:32 | disposition home or self-care (01) ==
LOC: SED 11:45
DX: R10.13 Epigastric pain (principal); R45.1 Restlessness and agitation; Z88.5 Allergy status to narcotic agent; Z79.899 Other long term (current) drug therapy; Z79.2 Long term (current) use of antibiotics
CPT/HCPCS: 99284; 96374; 96375; 80076; 80048; 82150; 84703; 83690; 85025; 85610; 85730; 36415; 96376; 83605; 82397; J2765; J2270

== ENCOUNTER 2023-12-05 07:30 | Emergency (ER) | payer OTHER ==
[~2023-12-05] VITALS: Ht 160 cm; Wt 117.9 kg
[2023-12-05 07:30] VITALS: BP_SYST 135; PULSE 78; RESP 19; TEMP 97.8; O2SAT 96
[~2023-12-05 07:30] MED LIST changes: +METO-290 PO
[2023-12-05] MEDS: HYDROcodone/ACETAMIN 10-325 MG TAB PO ONE (08:19)
[2023-12-05] MEDS: METOCLOPRAMIDE HCL 10 MG TABLET PO ONE (08:19)
[2023-12-05] MEDS: IBUPROFEN 800 MG TABLET PO ONE (08:19)
[2023-12-05 08:21] LABS: BILIRUBIN,URINE NEGATIVE (NEGATIVE); BLOOD, URINE NEGATIVE (NEGATIVE); CLARITY/URINE CLEAR (CLEAR); COLOR,URINE YELLOW (YELLOW); GLUCOSE,URINE NEGATIVE (NEGATIVE); KETONES,URINE NEGATIVE (NEGATIVE); LEUKOCYTE ESTERASE ,URINE NEGATIVE (NEGATIVE); NITRITE, URINE NEGATIVE (NEGATIVE); PROTEIN URINE NEGATIVE (NEGATIVE); UROBILINOGEN,URINE 0.2 (0.2-1.0)
[2023-12-05 08:37] LABS: BASOPHILS # (AUTO) 0.1 K/uL (0.0-0.2); BASOPHILS % (AUTO) 0.9 % (0.0-2.0); EOSINOPHILS # (AUTO) 0.3 K/uL (0.0-0.4); EOSINOPHILS % (AUTO) 3.9 % (0.0-4.0); HEMATOCRIT 39.6 % (36-48); HEMOGLOBIN 13.2 g/dL (12.0-16.0); LYMPHOCYTES # (AUTO) 1.8 K/uL (1.0-5.5); LYMPHOCYTES % (AUTO) 23.4 % (20.5-51.5); MEAN CORPUSCULAR HEMOGLOBIN 30 pg (27-31); MEAN CORPUSCULAR HGB CONC 33 % (32-36); MEAN CORPUSCULAR VOLUME 89 fL (79.0-98.0); MONOCYTES # (AUTO) 0.6 K/uL (0.0-1.0); MONOCYTES % (AUTO) 7.4 % (1.7-9.3); NEUTROPHILS % (AUTO) 64.4 % (40.0-70.0); PLATELET COUNT (AUTO) 293 K/uL (130-430); RED BLOOD CELL COUNT(AUTO) 4.45 MIL/uL (4.2-6.2); RED CELL DISTRIBUTION WIDTH 13.5 % (9.0-15.0); WHITE BLOOD COUNT (AUTO) 7.8 K/uL (4.8-10.8)
[2023-12-05 08:56] LABS: SERUM HCG (QUALITATIVE) NEGATIVE (NEGATIVE)
[2023-12-05 08:57] LABS: INR 1.1 (0.8-1.2)
[2023-12-05 09:09] LABS: ALBUMIN 3.6 g/dL (3.4-4.8); BILIRUBIN,DIRECT 0.1 mg/dL (0.0-0.3); CALCIUM 8.6 mg/dL (8.4-11.0); CREATININE 0.78 mg/dL (0.55-1.30); POTASSIUM 3.7 mmol/L (3.5-5.1); TOTAL BILIRUBIN 0.4 mg/dL (0.0-1.0); TOTAL PROTEIN, SERUM 7.1 g/dL (6.4-8.3)
== END 2023-12-05 09:18 | disposition left against medical advice (07) ==
LOC: SED 07:30
DX: R10.32 Left lower quadrant pain (principal); R11.2 Nausea with vomiting, unspecified; R19.7 Diarrhea, unspecified; R05.9 Cough, unspecified; R45.1 Restlessness and agitation; Z90.49 Acquired absence of other specified parts of digestive tract; Z90.710 Acquired absence of both cervix and uterus; Z88.5 Allergy status to narcotic agent; Z79.899 Other long term (current) drug therapy; Z59.00 Homelessness unspecified
CPT/HCPCS: 36415; 74018; 80048; 80076; 81001; 81003; 81025; 82150; 83605; 83690; 84703; 85025; 85610; 85730; 99284; J8597